=== PATIENT | female | born 1965 | race Caucasian/White ===

== ENCOUNTER 2020-06-13 11:43 | Emergency (ER) | payer OTHER ==
[2020-06-13 13:54] LABS: HEMOGLOBIN 12.8 gm/dl (12.3-15.3); RED BLOOD COUNT 4.31 M/UL (4.00-5.10); WHITE BLOOD COUNT 5.6 K/UL (4.5-11.0)
[2020-06-13 14:18] LABS: BUN/CREATININE RATIO 23 (0-10)
== END 2020-06-13 15:28 | disposition home or self-care (01) ==
LOC: ER1 11:43
PROVIDERS: Physician Assistant
DX: R06.00 Dyspnea, unspecified (principal); J45.909 Unspecified asthma, uncomplicated; E03.9 Hypothyroidism, unspecified
CPT/HCPCS: 71045; 80053; 82550; 82553; 83874; 83880; 84484; 85025; 85379; 93005; 99285